=== PATIENT | female | born 1990 | race Caucasian/White ===

== ENCOUNTER 2017-05-25 10:22 | Emergency (ER) | payer OTHER ==
[~2017-05-25] VITALS: Ht 152.4 cm; Wt 79.0 kg
[~2017-05-25 10:22] MED LIST: AMO500 PO; DENIES; IBUP-1542 PO; NO MEDS
[2017-05-25 10:24] VITALS: Ht 152.4 cm; Wt 79.0 kg
[2017-05-25] MEDS ORDERED: CEPH-443 PO (11:09)
--- NOTE | 2017-05-25 13:42 | ERD ---
ER Documentation Chief Complaint Date/Time DATE: 05/25/17 TIME: 13:39 Chief Complaint INGROWN LEFT TOE, COUGH HPI This is a 26-year-old female presenting to emergency department with left great toe pain. Patient states she was diagnosed with a paronychia and was started on Keflex 250 mg 4 times a day. Patient states since being on this medication she is noticed a great improvement in pain to left great toe. Patient states she still has some pain and swelling and is here for evaluation. Denies drainage, redness or warmth. Patient also states she has had a cough 2 days. No fevers or chills. No shortness breath or difficulty breathing. No wheezing. No chest pain. Cough is productive with clear sputum. No sick contacts. ROS All systems reviewed and are negative except as per history of present illness. Medications Home Meds Active Scripts Cephalexin* (Keflex*) 500 Mg Capsule, 500 MG PO QID for 5 Days, CAP Prov:ARSLAN COFFMAN NP 05/25/17 Ibuprofen* (Ibuprofen*) 600 Mg Tablet, 600 MG PO Q6, #14 TAB Prov:PATI SALINAS PA-C 07/26/15 Ibuprofen* (Ibuprofen*) 600 Mg Tablet, 600 MG PO Q6, #20 TAB Prov:PATI SALINAS PA-C 07/10/15 Amoxicillin* (Amoxicillin*) 500 Mg Cap, 500 MG PO BID for 10 Days, CAP Prov:MISAEL ROSS PA-C 05/06/15 Reported Medications [No Meds] No Conflict Check 05/11/14 [Denies] No Conflict Check 12/03/11 Allergies Allergies: Coded Allergies: No Known Allergies (Verified Allergy, Mild, 07/10/15) PMhx/Soc History of Surgery: No Anesthesia Reaction: No Hx Neurological Disorder: No Hx Respiratory Disorders: No Hx Cardiac Disorders: No Hx Psychiatric Problems: No Hx Miscellaneous Medical Probl: No Hx Alcohol Use: No Hx Substance Use: No Hx Tobacco Use: No Smoking Status: Never smoker Physical Exam Vitals Vital Signs Date Time Temp Pulse Resp B/P Pulse Ox O2 Delivery O2 Flow Rate FiO2 05/25/17 10:24 98.3 91 18 109/68 96 Physical Exam Const: No acute distress, alert Head: Atraumatic Eyes: Normal Conjunctiva ENT: Normal External Ears, Nose and Mouth. Neck: Full range of motion..~ No meningismus. Resp: Clear to auscultation bilaterally. No wheezing, rhonchi or crackles. No stridor or labored breathing. Patient is talking in complete sentences. Cardio: Regular rate and rhythm, no murmurs Abd: Soft, non tender, non distended. Normal bowel sounds Skin: No petechiae or rashes Back: No midline or flank tenderness Ext: No cyanosis, or edema. Mild swelling and redness of lateral aspect of left great toe. No drainage, warmth or tenderness to palpation. Neur: Awake and alert Psych: Normal Mood and Affect Procedures/MDM MDM: This is a 26-year-old female presenting to the emergency department with left great toe pain after diagnosis of paronychia. Patient was given prescription for Keflex 250 mg 4 times a day. Patient states this improved her symptoms however she continues to have some pain, swelling and redness. There is mild erythema, swelling and tenderness to palpation of lateral aspect of left great toe. No significant infection noted. No indication for toenail removal. Patient likely has paronychia. Low suspicion for deep space infection or ostium myelitis. Patient is appropriate for outpatient management will be given prescription for Keflex 500 mg 4 times daily 5 days. Instructed patient to follow-up with primary care provider in the next 2-3 days for reassessment. Return to ED for any high fever, chest pain, difficulty breathing, shortness breath, wheezing, vomiting, diarrhea, abdominal pain or any new or worsening symptoms. Patient verbalizes understanding. All questions answered at discharge. Departure Diagnosis: Primary Impression: Paronychia Laterality: left Qualified Code: L03.012 - Paronychia, left Condition: Stable Patient Instructions: Understanding Ingrown Toenails, Ingrown Toenail, No Infect (Hometx) Referrals: DEVON LANG Boyd [facility] YOU HAVE RECEIVED A MEDICAL SCREENING EXAM AND THE RESULTS INDICATE THAT YOU DO NOT HAVE A CONDITION THAT REQUIRES URGENT TREATMENT IN THE EMERGENCY DEPARTMENT. FURTHER EVALUATION AND TREATMENT OF YOUR CONDITION CAN WAIT UNTIL YOU ARE SEEN IN YOUR DOCTORS OFFICE WITHIN THE NEXT 1-2 DAYS. IT IS YOUR RESPONSIBILITY TO MAKE AN APPOINTMENT FOR FOLOW-UP CARE. IF YOU HAVE A PRIMARY DOCTOR --you should call your primary doctor and schedule an appointment IF YOU DO NOT HAVE A PRIMARY DOCTOR YOU CAN CALL OUR PHYSICIAN REFERRAL HOTLINE AT IF YOU CAN NOT AFFORD TO SEE A PHYSICIAN YOU CAN CHOSE FROM THE FOLLOWING [facility] [address] [facility] [address] [facility] [address] [facility] [address] [facility] [address] [facility]. [facility] [address] [facility]. [facility] YOU HAVE RECEIVED A MEDICAL SCREENING EXAM AND THE RESULTS INDICATE THAT YOU DO NOT HAVE A CONDITION THAT REQUIRES URGENT TREATMENT IN THE EMERGENCY DEPARTMENT. FURTHER EVALUATION AND TREATMENT OF YOUR CONDITION CAN WAIT UNTIL YOU ARE SEEN IN YOUR DOCTORS OFFICE WITHIN THE NEXT 1-2 DAYS. IT IS YOUR RESPONSIBILITY TO MAKE AN APPOINTMENT FOR FOLOW-UP CARE. IF YOU HAVE A PRIMARY DOCTOR --you should call your primary doctor and schedule and appointment IF YOU DO NOT HAVE A PRIMARY DOCTOR YOU CAN CALL OUR PHYSICIAN REFERRAL HOTLINE AT . IF YOU CAN NOT AFFORD TO SEE A PHYSICIAN YOU CAN CHOSE FROM THE FOLLOWING [facility]: [facility] [address] [place] [address] [facility] [address] [place] [address] [facility] [address] [place] [address] Additional Instructions: Call your primary care doctor TOMORROW for an appointment during the next 2-3 days.See the doctor sooner or return here if your condition worsens before your appointment time. Return to ED for any high fever, chest pain, difficulty breathing, shortness breath, wheezing, vomiting, diarrhea, abdominal pain or any new or worsening symptoms. ARSLAN COFFMAN NP May 25, 2017 13:42
== END 2017-05-25 11:17 | disposition home or self-care (01) ==
LOC: FTE 10:22
DX: L03.012 Cellulitis of left finger (principal)
CPT/HCPCS: 99283